=== PATIENT | female | born 1970 | race Caucasian/White ===

== ENCOUNTER 2020-11-04 12:00 | Emergency (ER) | payer OTHER ==
[2020-11-04 12:59] LABS: HEMOGLOBIN 16.1 gm/dl (12.3-15.3); RED BLOOD COUNT 5.12 M/UL (4.00-5.10); WHITE BLOOD COUNT 12.9 K/UL (4.5-11.0)
[2020-11-04 13:34] LABS: BUN/CREATININE RATIO 15 (0-10)
== END 2020-11-04 14:24 | disposition home or self-care (01) ==
LOC: ER1 12:00
PROVIDERS: Family Medicine
DX: R10.10 Upper abdominal pain, unspecified (principal); Z79.899 Other long term (current) drug therapy; F17.200 Nicotine dependence, unspecified, uncomplicated
CPT/HCPCS: 80053; 81001; 82550; 82553; 83690; 83874; 84484; 84703; 85025; 93005; 99284

== ENCOUNTER → 2020-11-10 | Outpatient (CLI) | payer OTHER | LOC: EXRD 07:39 | DX: R10.11 Right upper quadrant pain (principal) | CPT/HCPCS: 76705 ==

== ENCOUNTER 2021-11-20 11:58 | Emergency (ER) | payer SELFPAY ==
[2021-11-20] MEDS ORDERED: IBUPROFEN800 MG PO (14:32)
== END 2021-11-20 14:55 | disposition home or self-care (01) ==
LOC: ER1 11:58
DX: S16.1XXA Strain of muscle, fascia and tendon at neck level, initial encounter (principal); S39.012A Strain of muscle, fascia and tendon of lower back, initial encounter; S40.012A Contusion of left shoulder, initial encounter; S50.02XA Contusion of left elbow, initial encounter; S60.212A Contusion of left wrist, initial encounter; S70.02XA Contusion of left hip, initial encounter; S80.02XA Contusion of left knee, initial encounter; F17.210 Nicotine dependence, cigarettes, uncomplicated; W01.10XA Fall on same level from slipping, tripping and stumbling with subsequent striking against unspecified object, initial encounter; Y92.89 Other specified places as the place of occurrence of the external cause; Y99.0 Civilian activity done for income or pay
CPT/HCPCS: 72100; 72125; 73030; 73080; 73110; 73502; 73562; 99284